=== PATIENT | female | born 1930 | race Caucasian/White ===

== ENCOUNTER → 2017-02-28 | Outpatient (CLI) | payer OTHER ==
[~2017-02-28] MED LIST: ALBU2.5V11 NEB; ALPR0.25 PO; ASPI-496 PO; ATEN50TA41 PO; ATOR20TA9 PO; CHLO25TA PO; CHOL200024 PO; DOXY100T PO; FAMO20TA7 PO; FLUT9.9S NAS; INDO50CA PO; METF500T4 PO; MULT-717 PO; PRIM50TA PO; TICA90TA PO; [UNRECOGNIZED DRUG - OTHER] PO
== END | disposition home or self-care (01) ==
LOC: CFH 14:19
PROVIDERS: ATTEND Family Medicine
DX: Z13.820 Encounter for screening for osteoporosis (principal); M81.0 Age-related osteoporosis without current pathological fracture; M41.86 Other forms of scoliosis, lumbar region; M43.16 Spondylolisthesis, lumbar region
CPT/HCPCS: 72100; 77080

== ENCOUNTER 2017-11-06 05:30 | Day surgery (SDC) | payer OTHER ==
[~2017-11-06] VITALS: Ht 152.4 cm; Wt 58.0 kg
[2017-11-06] MEDS ORDERED: LACTATED RINGERS 1,000 ML IV SCH (06:07)
[2017-11-06 06:39] VITALS: BP 151/72
[2017-11-06] MEDS ORDERED: CLOP75TA52 PO (06:43)
[2017-11-06] MEDS ORDERED: SERT50TA5 PO (06:44)
[2017-11-06] MEDS ORDERED: ALBU18HF INH (06:44)
[2017-11-06] MEDS ORDERED: ACET-1600 PO (06:44)
[2017-11-06 07:20] LABS: ALANINE AMINOTRANSFERASE 33 U/L (12-78); ALBUMIN 3.9 g/dL (3.4-5.0); ANION GAP 11 mmol/L (5-15); CALCIUM 8.7 mg/dL (8.5-10.1); CHLORIDE 100 mmol/L (98-107); CREATININE 1.25 mg/dL (0.55-1.02)
[2017-11-06 07:22] LABS: ALKALINE PHOSPHATASE 59 U/L (45-117); BILIRUBIN,TOTAL 0.4 mg/dL (0.2-1.0); TOTAL PROTEIN 7.8 g/dL (6.4-8.2)
[2017-11-06 07:26] LABS: BASOPHILS # (AUTO) 0.07 x10^3/uL (0-0.1); BASOPHILS % (AUTO) 1 % (0-1); EOSINOPHILS % (AUTO) 1 % (1-7); LYMPHOCYTES # (AUTO) 1.38 x10^3/uL (1-3.4); LYMPHOCYTES % (AUTO) 17 % (22-44); MD NO; MEAN CORPUSCULAR HEMOGLOBIN 31.1 pg (27.0-34.8); MEAN CORPUSCULAR HGB CONC 32.8 g/dL (32.4-35.8); MEAN PLATELET VOLUME 7.9 fL (7.4-10.4); MONOCYTES # (AUTO) 0.62 x10^3/uL (0.2-0.8); MONOCYTES % (AUTO) 8 % (2-9); NEUTROPHILS # (AUTO) 6.05 x10^3/uL (1.8-6.8); NEUTROPHILS % (AUTO) 74 % (42-75); PLATELET COUNT 242 x10^3/uL (130-400); RED BLOOD COUNT 4.55 x10^6/uL (3.82-5.3); RED CELL DISTRIBUTION WIDTH 14.6 % (9.6-15.2)
[2017-11-06] MEDS ORDERED: LABETALOL 5MG/ML, 20ML IV PRN (08:30)
[2017-11-06] MEDS ORDERED: FENTANYL PF 100 MCG/2ML IV PRN (08:30)
[2017-11-06] MEDS ORDERED: MIDAZOLAM 1 MG/ML, 2ML IV PRN (08:30)
[2017-11-06] MEDS ORDERED: ONDANSETRON 2MG/ML, 2ML IVPush PRN (08:30)
[2017-11-06] MEDS ORDERED: EPHEDRINE 50 MG/ML, 1ML IVPush PRN (08:30)
[2017-11-06] MEDS ORDERED: ACETAMINOPHEN 325 MG TABLET PO PRN (08:30)
[2017-11-06] MEDS ORDERED: hydrALAzine 20 MG/ML, 1ML ONE (08:37)
[2017-11-06] MEDS ORDERED: hydrALAzine 20 MG/ML, 1ML IV PRN (09:00)
[2017-11-06] MEDS ORDERED: PROPOFOL 10 MG/ML, 20ML ONE (15:48)
[2017-11-06] MEDS ORDERED: PROPOFOL 10 MG/ML, 50ML ONE (15:48)
== END 2017-11-06 10:20 ==
LOC: OUT 05:30
PROVIDERS: ATTEND Internal Medicine Gastroenterology
DX: D12.4 Benign neoplasm of descending colon (principal); K63.5 Polyp of colon; K62.1 Rectal polyp; K57.30 Diverticulosis of large intestine without perforation or abscess without bleeding; K64.8 Other hemorrhoids; J44.9 Chronic obstructive pulmonary disease, unspecified; I10 Essential (primary) hypertension; I25.10 Atherosclerotic heart disease of native coronary artery without angina pectoris
CPT/HCPCS: 36415; 45380; 45385; 80053; 85025; 88305; 93005; J0360; J2704; J7120

== ENCOUNTER → 2017-12-03 | Outpatient (CLI) | payer OTHER ==
[~2017-12-03] MED LIST changes: +ACET-1600 PO; +ALBU18HF INH; +CLOP75TA52 PO; +SERT50TA5 PO
== END ==
LOC: CVU 13:58
PROVIDERS: ATTEND Internal Medicine Cardiovascular Disease
DX: I65.23 Occlusion and stenosis of bilateral carotid arteries (principal); I10 Essential (primary) hypertension; E11.9 Type 2 diabetes mellitus without complications; Z87.891 Personal history of nicotine dependence
CPT/HCPCS: 93880

== ENCOUNTER 2018-01-02 15:52 | Inpatient (IN) | payer OTHER ==
[~2018-01-02] VITALS: Ht 152.4 cm; Wt 58.7 kg
[2018-01-02] MEDS ORDERED: ALBUTEROL/IPRATROPIUM 2.5MG/0.5MG, 3 ML NPPB ONE (16:30)
[2018-01-02] MEDS ORDERED: SODIUM CHLORIDE FLUSH 10ML SYR IVF ONE (16:30)
[2018-01-02 16:50] LABS: BASOPHILS # (AUTO) 0.05 x10^3/uL (0-0.1); BASOPHILS % (AUTO) 1 % (0-1); EOSINOPHILS # (AUTO) 0.53 x10^3/uL (0-0.4); EOSINOPHILS % (AUTO) 6 % (1-7); LYMPHOCYTES # (AUTO) 1.11 x10^3/uL (1-3.4); LYMPHOCYTES % (AUTO) 12 % (22-44); MD NO; MEAN CORPUSCULAR HEMOGLOBIN 31.3 pg (27.0-34.8); MEAN CORPUSCULAR HGB CONC 33.2 g/dL (32.4-35.8); MEAN CORPUSCULAR VOLUME 94.3 fL (80-100); MEAN PLATELET VOLUME 8.2 fL (7.4-10.4); MONOCYTES # (AUTO) 0.71 x10^3/uL (0.2-0.8); MONOCYTES % (AUTO) 8 % (2-9); NEUTROPHILS # (AUTO) 6.98 x10^3/uL (1.8-6.8); NEUTROPHILS % (AUTO) 75 % (42-75); PLATELET COUNT 421 x10^3/uL (130-400); RED CELL DISTRIBUTION WIDTH 14.3 % (9.6-15.2)
[2018-01-02] MEDS ORDERED: ALBUTEROL/IPRATROPIUM 2.5MG/0.5MG, 3 ML ONE (16:55)
[2018-01-02 16:58] LABS: ALANINE AMINOTRANSFERASE 57 U/L (12-78); ALBUMIN 2.9 g/dL (3.4-5.0); ANION GAP 7 mmol/L (5-15); CALCIUM 9.2 mg/dL (8.5-10.1); CHLORIDE 96 mmol/L (98-107); CREATININE 1.24 mg/dL (0.55-1.02)
[2018-01-02 17:02] LABS: ALKALINE PHOSPHATASE 56 U/L (45-117); BILIRUBIN,TOTAL 0.2 mg/dL (0.2-1.0); TOTAL PROTEIN 7.5 g/dL (6.4-8.2); TROPONIN I < 0.015 ng/mL (0.000-0.045)
[2018-01-02] MEDS ORDERED: CHLO25TA PO (17:06)
[2018-01-02] MEDS ORDERED: PRIM250T PO (17:06)
[2018-01-02] MEDS ORDERED: SERT100T5 PO (17:06)
[2018-01-02 18:35] LABS: RAPID INFLUENZA A Negative (Negative); RAPID INFLUENZA B Negative (Negative)
[2018-01-02] MEDS ORDERED: OMNIPAQUE 350 MG/ML, 100ML BOTTLE ONE (19:42)
[2018-01-02] MEDS ORDERED: FUROSEMIDE 20 MG/2 ML IV ONE (20:30)
[2018-01-02] MEDS ORDERED: methylPREDNISolone 4mg DOSE PACK PO SCH (20:30)
[2018-01-02] MEDS ORDERED: POLYETHYLENE GLYCOL 17 GM PACKET PO PRN (20:30)
[2018-01-02] MEDS ORDERED: ACETAMINOPHEN 325 MG TABLET PO PRN (20:30)
[2018-01-02] MEDS ORDERED: ONDANSETRON 2MG/ML, 2ML IVPush PRN (20:30)
[2018-01-02] MEDS ORDERED: BISACODYL 10 MG SUPP PR PRN (20:30)
[2018-01-02] MEDS ORDERED: POTASSIUM CHLORIDE 20 MEQ TAB.ER.PRT PO ONE (20:30)
[2018-01-02] MEDS: HEPARIN 5,000 UNITS/ML, 1ML SQ SCH (20:30)
[2018-01-02 20:56] VITALS: BP 166/66
[2018-01-02] MEDS ORDERED: methylPREDNISolone 4mg DOSE PACK ONE (21:00)
[2018-01-02] MEDS: TICAGRELOR 90 MG TABLET PO SCH (21:00)
[2018-01-02] MEDS ORDERED: ALBUTEROL SULFATE 2.5 MG/3 ML NPPB PRN (22:00)
[2018-01-02] MEDS: SODIUM CHLORIDE FLUSH 10ML SYR IVF SCH (22:22)
[2018-01-02] MEDS: DOXYCYCLINE 100 MG in DEXTROSE 5% 250 ML IV SCH (22:22)
[2018-01-02] MEDS: ATORVASTATIN 20 MG TABLET PO SCH (22:23)
[2018-01-03 01:06] VITALS: BP 139/57
[2018-01-03 03:52] LABS: ALANINE AMINOTRANSFERASE 54 U/L (12-78); ALBUMIN 2.4 g/dL (3.4-5.0); ANION GAP 5 mmol/L (5-15); BASOPHILS # (AUTO) 0.03 x10^3/uL (0-0.1); BASOPHILS % (AUTO) 0 % (0-1); CALCIUM 8.9 mg/dL (8.5-10.1); CHLORIDE 97 mmol/L (98-107); CREATININE 1.18 mg/dL (0.55-1.02); EOSINOPHILS # (AUTO) 0.03 x10^3/uL (0-0.4); EOSINOPHILS % (AUTO) 1 % (1-7); LYMPHOCYTES # (AUTO) 0.95 x10^3/uL (1-3.4); LYMPHOCYTES % (AUTO) 13 % (22-44); MD NO; MEAN CORPUSCULAR HGB CONC 32.7 g/dL (32.4-35.8); MEAN CORPUSCULAR VOLUME 94.7 fL (80-100); MEAN PLATELET VOLUME 8.4 fL (7.4-10.4); MONOCYTES # (AUTO) 0.69 x10^3/uL (0.2-0.8); MONOCYTES % (AUTO) 10 % (2-9); NEUTROPHILS # (AUTO) 5.51 x10^3/uL (1.8-6.8); NEUTROPHILS % (AUTO) 76 % (42-75); PLATELET COUNT 378 x10^3/uL (130-400); RED BLOOD COUNT 3.59 x10^6/uL (3.82-5.3); RED CELL DISTRIBUTION WIDTH 14.2 % (9.6-15.2)
[2018-01-03 03:54] LABS: ALKALINE PHOSPHATASE 56 U/L (45-117); BILIRUBIN,TOTAL 0.1 mg/dL (0.2-1.0); TOTAL PROTEIN 6.4 g/dL (6.4-8.2)
[2018-01-03] MEDS: HEPARIN 5,000 UNITS/ML, 1ML SQ SCH ×3 (04:30→20:29)
[2018-01-03 08:55] VITALS: BP 126/64
[2018-01-03] MEDS: MULTIVITAMIN 1 TABLET PO SCH (08:55)
[2018-01-03] MEDS: CHOLECALCIFEROL 1,000 UNIT TABLET PO SCH (08:56)
[2018-01-03] MEDS: SERTRALINE 100MG TABLET PO SCH (08:56)
[2018-01-03] MEDS: ASPIRIN 81 MG TABLET EC PO SCH (08:56)
[2018-01-03] MEDS: PRIMIDONE 250 MG TABLET PO SCH (08:56)
[2018-01-03] MEDS: CHLORTHALIDONE 25 MG TABLET PO SCH (08:56)
[2018-01-03] MEDS: CLOPIDOGREL 75 MG TABLET PO SCH (08:59)
[2018-01-03] MEDS: FLUTICASONE/VILANTEROL 100-25MCG/INH INH SCH (09:00)
[2018-01-03] MEDS: FLUTICASONE NASAL SPRAY 16GM NAS SCH (09:00)
[2018-01-03] MEDS: SENNA/DOCUSATE TABLET PO SCH (09:00)
[2018-01-03] MEDS: TICAGRELOR 90 MG TABLET PO SCH (09:00)
[2018-01-03] MEDS: SODIUM CHLORIDE FLUSH 10ML SYR IVF SCH ×2 (09:00→20:37)
[2018-01-03] MEDS: DOXYCYCLINE 100 MG in DEXTROSE 5% 250 ML IV SCH ×2 (10:47→22:42)
[2018-01-03 14:36] VITALS: BP 58/64
[2018-01-03 19:40] VITALS: BP 110/56
[2018-01-03] MEDS: ATORVASTATIN 20 MG TABLET PO SCH (20:36)
[2018-01-04] MEDS: HEPARIN 5,000 UNITS/ML, 1ML SQ SCH ×3 (01:59→20:24)
[2018-01-04 02:27] VITALS: BP 114/68
[2018-01-04 06:53] VITALS: BP 112/66
[2018-01-04] MEDS: CHLORTHALIDONE 25 MG TABLET PO SCH ×2 (09:04→09:31)
[2018-01-04] MEDS: FLUTICASONE NASAL SPRAY 16GM NAS SCH (09:31)
[2018-01-04] MEDS: MULTIVITAMIN 1 TABLET PO SCH (09:31)
[2018-01-04] MEDS: CLOPIDOGREL 75 MG TABLET PO SCH (09:31)
[2018-01-04] MEDS: SODIUM CHLORIDE FLUSH 10ML SYR IVF SCH ×2 (09:33→20:23)
[2018-01-04] MEDS: ASPIRIN 81 MG TABLET EC PO SCH (09:33)
[2018-01-04] MEDS: SERTRALINE 100MG TABLET PO SCH (09:33)
[2018-01-04] MEDS: CHOLECALCIFEROL 1,000 UNIT TABLET PO SCH (09:33)
[2018-01-04] MEDS: FLUTICASONE/VILANTEROL 100-25MCG/INH INH SCH (09:33)
[2018-01-04] MEDS: SENNA/DOCUSATE TABLET PO SCH (09:34)
[2018-01-04] MEDS: PRIMIDONE 250 MG TABLET PO SCH (09:34)
[2018-01-04] MEDS: DOXYCYCLINE 100 MG in DEXTROSE 5% 250 ML IV SCH ×2 (11:47→23:45)
[2018-01-04 12:55] VITALS: BP 110/61
[2018-01-04 19:33] VITALS: BP 116/64
[2018-01-04] MEDS: ATORVASTATIN 20 MG TABLET PO SCH (20:22)
[2018-01-05 02:30] VITALS: BP 142/57
[2018-01-05] MEDS: HEPARIN 5,000 UNITS/ML, 1ML SQ SCH ×3 (04:30→23:40)
[2018-01-05 07:38] VITALS: BP 117/61
[2018-01-05] MEDS: SODIUM CHLORIDE FLUSH 10ML SYR IVF SCH ×2 (09:56→23:40)
[2018-01-05] MEDS: FLUTICASONE/VILANTEROL 100-25MCG/INH INH SCH (09:56)
[2018-01-05] MEDS: FLUTICASONE NASAL SPRAY 16GM NAS SCH (09:56)
[2018-01-05] MEDS: SERTRALINE 100MG TABLET PO SCH (09:58)
[2018-01-05] MEDS: PRIMIDONE 250 MG TABLET PO SCH (09:58)
[2018-01-05] MEDS: CHOLECALCIFEROL 1,000 UNIT TABLET PO SCH (09:58)
[2018-01-05] MEDS: CLOPIDOGREL 75 MG TABLET PO SCH (09:59)
[2018-01-05] MEDS: SENNA/DOCUSATE TABLET PO SCH (09:59)
[2018-01-05] MEDS: DOXYCYCLINE 100MG TABLET PO SCH ×2 (09:59→23:39)
[2018-01-05] MEDS: MULTIVITAMIN 1 TABLET PO SCH (09:59)
[2018-01-05] MEDS: ASPIRIN 81 MG TABLET EC PO SCH (09:59)
[2018-01-05] MEDS: CHLORTHALIDONE 25 MG TABLET PO SCH (12:33)
[2018-01-05 14:55] VITALS: BP_SYST 120; BP_SYST 136; BP_DIAS 63; BP_DIAS 75
[2018-01-05 18:42] VITALS: BP 156/69
[2018-01-05] MEDS: ATORVASTATIN 20 MG TABLET PO SCH (23:39)
[2018-01-06 02:31] VITALS: BP 123/68
[2018-01-06 04:21] LABS: BASOPHILS # (AUTO) 0.01 x10^3/uL (0-0.1); BASOPHILS % (AUTO) 0 % (0-1); EOSINOPHILS # (AUTO) 0.04 x10^3/uL (0-0.4); EOSINOPHILS % (AUTO) 0 % (1-7); LYMPHOCYTES # (AUTO) 1.04 x10^3/uL (1-3.4); LYMPHOCYTES % (AUTO) 12 % (22-44); MD NO; MEAN CORPUSCULAR HEMOGLOBIN 30.7 pg (27.0-34.8); MEAN CORPUSCULAR HGB CONC 32.5 g/dL (32.4-35.8); MEAN CORPUSCULAR VOLUME 94.5 fL (80-100); MEAN PLATELET VOLUME 7.8 fL (7.4-10.4); MONOCYTES # (AUTO) 0.32 x10^3/uL (0.2-0.8); MONOCYTES % (AUTO) 4 % (2-9); NEUTROPHILS % (AUTO) 84 % (42-75); PLATELET COUNT 443 x10^3/uL (130-400)
[2018-01-06 04:25] LABS: ALBUMIN 2.4 g/dL (3.4-5.0); ANION GAP 6 mmol/L (5-15); CALCIUM 9.1 mg/dL (8.5-10.1); CHLORIDE 101 mmol/L (98-107); CREATININE 0.95 mg/dL (0.55-1.02)
[2018-01-06] MEDS: HEPARIN 5,000 UNITS/ML, 1ML SQ SCH ×2 (04:30→12:48)
[2018-01-06 04:36] LABS: HEMOGLOBIN A1C 6.1 % (4.2-6.3)
[2018-01-06 06:40] VITALS: BP 156/81
[2018-01-06] MEDS: FLUTICASONE/VILANTEROL 100-25MCG/INH INH SCH (08:18)
[2018-01-06] MEDS: FLUTICASONE NASAL SPRAY 16GM NAS SCH (08:18)
[2018-01-06] MEDS: ASPIRIN 81 MG TABLET EC PO SCH (08:19)
[2018-01-06] MEDS: MULTIVITAMIN 1 TABLET PO SCH (08:19)
[2018-01-06] MEDS: PRIMIDONE 250 MG TABLET PO SCH (08:20)
[2018-01-06] MEDS: SENNA/DOCUSATE TABLET PO SCH (08:20)
[2018-01-06] MEDS: CLOPIDOGREL 75 MG TABLET PO SCH (08:20)
[2018-01-06] MEDS: SERTRALINE 100MG TABLET PO SCH (08:20)
[2018-01-06] MEDS: DOXYCYCLINE 100MG TABLET PO SCH (08:20)
[2018-01-06] MEDS: CHOLECALCIFEROL 1,000 UNIT TABLET PO SCH (08:21)
[2018-01-06] MEDS: CHLORTHALIDONE 25 MG TABLET PO SCH (08:24)
[2018-01-06] MEDS: SODIUM CHLORIDE FLUSH 10ML SYR IVF SCH (09:18)
[2018-01-06] MEDS ORDERED: PRED10TA PO (11:03)
[2018-01-06] MEDS ORDERED: DOXY100T PO (11:10)
[2018-01-06] MEDS ORDERED: PNEUMOCOCCAL 23 VACCINE IM-VACC ONE (12:00)
== END 2018-01-06 14:00 | disposition home health service (06) | DRG 189 ==
LOC: ED 17:00 → EDIP 20:22 → 3NW 20:31
PROVIDERS: ADMIT Hospitalist; ATTEND Hospitalist
DX: J96.01 Acute respiratory failure with hypoxia (principal); E43 Unspecified severe protein-calorie malnutrition; E11.51 Type 2 diabetes mellitus with diabetic peripheral angiopathy without gangrene; I50.32 Chronic diastolic (congestive) heart failure; I11.0 Hypertensive heart disease with heart failure; E87.1 Hypo-osmolality and hyponatremia; J44.1 Chronic obstructive pulmonary disease with (acute) exacerbation; M48.54XA Collapsed vertebra, not elsewhere classified, thoracic region, initial encounter for fracture; I25.10 Atherosclerotic heart disease of native coronary artery without angina pectoris; E78.5 Hyperlipidemia, unspecified; E87.6 Hypokalemia; Z82.3 Family history of stroke; Z82.49 Family history of ischemic heart disease and other diseases of the circulatory system; Z85.51 Personal history of malignant neoplasm of bladder; Z87.891 Personal history of nicotine dependence; Z95.5 Presence of coronary angioplasty implant and graft; Z23 Encounter for immunization
CPT/HCPCS: 36415; 71046; 71275; 80048; 80053; 82040; 83036; 83735; 83880; 84100; 84484; 85025; 85379; 87400; 90732; 93005; 94640; 99285; J7060; J7509; J7620; Q9967; J1940; J7512

== ENCOUNTER → 2018-06-03 | Outpatient (CLI) | payer OTHER ==
[~2018-06-03] MED LIST changes: -INDO50CA PO; +INDO50CA5 PO; -METF500T4 PO; +METF500T5 PO; +PRED10TA PO; +PRIM250T PO; +SERT100T5 PO
== END | disposition home or self-care (01) ==
LOC: WOUND 13:39
PROVIDERS: ATTEND Internal Medicine
DX: S81.811A Laceration without foreign body, right lower leg, initial encounter (principal); E11.9 Type 2 diabetes mellitus without complications; I11.0 Hypertensive heart disease with heart failure; I50.32 Chronic diastolic (congestive) heart failure; J96.11 Chronic respiratory failure with hypoxia; I25.10 Atherosclerotic heart disease of native coronary artery without angina pectoris; I70.201 Unspecified atherosclerosis of native arteries of extremities, right leg; I65.22 Occlusion and stenosis of left carotid artery; M81.0 Age-related osteoporosis without current pathological fracture; E78.2 Mixed hyperlipidemia; J43.9 Emphysema, unspecified; F32.9 Major depressive disorder, single episode, unspecified; Z85.51 Personal history of malignant neoplasm of bladder; Z87.891 Personal history of nicotine dependence; Z95.9 Presence of cardiac and vascular implant and graft, unspecified; Z95.5 Presence of coronary angioplasty implant and graft; W22.8XXA Striking against or struck by other objects, initial encounter; Y93.89 Activity, other specified; Y92.89 Other specified places as the place of occurrence of the external cause; Y99.8 Other external cause status
CPT/HCPCS: 97597; 99215

== ENCOUNTER → 2018-06-12 | Outpatient (CLI) | payer OTHER | END | disposition home or self-care (01) | LOC: WOUND 13:56 | PROVIDERS: ATTEND Family Medicine | DX: S81.811D Laceration without foreign body, right lower leg, subsequent encounter (principal); E78.2 Mixed hyperlipidemia; I70.208 Unspecified atherosclerosis of native arteries of extremities, other extremity; I65.22 Occlusion and stenosis of left carotid artery; J96.11 Chronic respiratory failure with hypoxia; M81.0 Age-related osteoporosis without current pathological fracture; I25.10 Atherosclerotic heart disease of native coronary artery without angina pectoris; J43.9 Emphysema, unspecified; I11.0 Hypertensive heart disease with heart failure; I50.32 Chronic diastolic (congestive) heart failure; E11.9 Type 2 diabetes mellitus without complications; F32.9 Major depressive disorder, single episode, unspecified; Z85.51 Personal history of malignant neoplasm of bladder; Z87.891 Personal history of nicotine dependence; Z95.5 Presence of coronary angioplasty implant and graft; Z95.1 Presence of aortocoronary bypass graft; X58.XXXD Exposure to other specified factors, subsequent encounter | CPT/HCPCS: 97597 ==

== ENCOUNTER → 2018-06-19 | Outpatient (CLI) | payer OTHER | END | disposition home or self-care (01) | LOC: WOUND 13:36 | PROVIDERS: ATTEND Family Medicine | DX: S81.811D Laceration without foreign body, right lower leg, subsequent encounter (principal); J96.11 Chronic respiratory failure with hypoxia; I50.32 Chronic diastolic (congestive) heart failure; E11.9 Type 2 diabetes mellitus without complications; J43.9 Emphysema, unspecified; I70.208 Unspecified atherosclerosis of native arteries of extremities, other extremity; I65.22 Occlusion and stenosis of left carotid artery; I10 Essential (primary) hypertension; E78.2 Mixed hyperlipidemia; I25.10 Atherosclerotic heart disease of native coronary artery without angina pectoris; M81.0 Age-related osteoporosis without current pathological fracture; E78.5 Hyperlipidemia, unspecified; F32.9 Major depressive disorder, single episode, unspecified; Z95.1 Presence of aortocoronary bypass graft; Z95.9 Presence of cardiac and vascular implant and graft, unspecified; Z95.5 Presence of coronary angioplasty implant and graft; Z85.51 Personal history of malignant neoplasm of bladder; Z87.891 Personal history of nicotine dependence; X58.XXXD Exposure to other specified factors, subsequent encounter | CPT/HCPCS: 11042 ==

== ENCOUNTER → 2018-06-26 | Outpatient (CLI) | payer OTHER | END | disposition home or self-care (01) | LOC: WOUND 13:33 | PROVIDERS: ATTEND Family Medicine | DX: S51.811D Laceration without foreign body of right forearm, subsequent encounter (principal); I11.0 Hypertensive heart disease with heart failure; I50.32 Chronic diastolic (congestive) heart failure; J96.11 Chronic respiratory failure with hypoxia; J43.9 Emphysema, unspecified; E78.2 Mixed hyperlipidemia; I70.208 Unspecified atherosclerosis of native arteries of extremities, other extremity; I65.22 Occlusion and stenosis of left carotid artery; I25.10 Atherosclerotic heart disease of native coronary artery without angina pectoris; M81.0 Age-related osteoporosis without current pathological fracture; F10.19 Alcohol abuse with unspecified alcohol-induced disorder; F32.9 Major depressive disorder, single episode, unspecified; Z95.5 Presence of coronary angioplasty implant and graft; Z95.9 Presence of cardiac and vascular implant and graft, unspecified; Z85.51 Personal history of malignant neoplasm of bladder; Z87.891 Personal history of nicotine dependence; Y90.9 Presence of alcohol in blood, level not specified | CPT/HCPCS: 11042 ==

== ENCOUNTER → 2018-07-10 | Outpatient (CLI) | payer OTHER ==
[~2018-07-10] MED LIST changes: +METF500T17 PO; -METF500T5 PO
== END | disposition home or self-care (01) ==
LOC: WOUND 14:05
PROVIDERS: ATTEND Family Medicine
DX: S81.811D Laceration without foreign body, right lower leg, subsequent encounter (principal); I11.0 Hypertensive heart disease with heart failure; I50.32 Chronic diastolic (congestive) heart failure; J96.11 Chronic respiratory failure with hypoxia; I70.208 Unspecified atherosclerosis of native arteries of extremities, other extremity; I25.10 Atherosclerotic heart disease of native coronary artery without angina pectoris; M81.0 Age-related osteoporosis without current pathological fracture; E78.2 Mixed hyperlipidemia; J43.9 Emphysema, unspecified; F32.9 Major depressive disorder, single episode, unspecified; I65.22 Occlusion and stenosis of left carotid artery; E11.51 Type 2 diabetes mellitus with diabetic peripheral angiopathy without gangrene; Z85.51 Personal history of malignant neoplasm of bladder; Z87.891 Personal history of nicotine dependence; Z95.9 Presence of cardiac and vascular implant and graft, unspecified; Z95.5 Presence of coronary angioplasty implant and graft; X58.XXXD Exposure to other specified factors, subsequent encounter
CPT/HCPCS: 97597

== ENCOUNTER → 2018-07-17 | Outpatient (CLI) | payer OTHER | END | disposition home or self-care (01) | LOC: WOUND 13:30 | PROVIDERS: ATTEND Family Medicine | DX: S81.811D Laceration without foreign body, right lower leg, subsequent encounter (principal); I11.0 Hypertensive heart disease with heart failure; I50.32 Chronic diastolic (congestive) heart failure; E11.51 Type 2 diabetes mellitus with diabetic peripheral angiopathy without gangrene; R60.9 Edema, unspecified; E78.2 Mixed hyperlipidemia; I65.22 Occlusion and stenosis of left carotid artery; J96.11 Chronic respiratory failure with hypoxia; I70.201 Unspecified atherosclerosis of native arteries of extremities, right leg; M81.0 Age-related osteoporosis without current pathological fracture; F32.9 Major depressive disorder, single episode, unspecified; J43.9 Emphysema, unspecified; E78.5 Hyperlipidemia, unspecified; I25.10 Atherosclerotic heart disease of native coronary artery without angina pectoris; Z95.1 Presence of aortocoronary bypass graft; Z87.891 Personal history of nicotine dependence; Z85.51 Personal history of malignant neoplasm of bladder; X58.XXXD Exposure to other specified factors, subsequent encounter | CPT/HCPCS: 11043 ==

== ENCOUNTER → 2018-07-24 | Outpatient (CLI) | payer OTHER | END | disposition home or self-care (01) | LOC: WOUND 13:00 | PROVIDERS: ATTEND Family Medicine | DX: S81.811D Laceration without foreign body, right lower leg, subsequent encounter (principal); E11.51 Type 2 diabetes mellitus with diabetic peripheral angiopathy without gangrene; I11.0 Hypertensive heart disease with heart failure; I50.32 Chronic diastolic (congestive) heart failure; I70.208 Unspecified atherosclerosis of native arteries of extremities, other extremity; F32.9 Major depressive disorder, single episode, unspecified; J43.9 Emphysema, unspecified; R60.9 Edema, unspecified; I65.22 Occlusion and stenosis of left carotid artery; J96.11 Chronic respiratory failure with hypoxia; I25.10 Atherosclerotic heart disease of native coronary artery without angina pectoris; E78.2 Mixed hyperlipidemia; M81.0 Age-related osteoporosis without current pathological fracture; Z85.51 Personal history of malignant neoplasm of bladder; Z87.891 Personal history of nicotine dependence; Z85.3 Personal history of malignant neoplasm of breast; X58.XXXD Exposure to other specified factors, subsequent encounter | CPT/HCPCS: 11042 ==

== ENCOUNTER → 2018-08-28 | Outpatient (CLI) | payer OTHER | END | disposition home or self-care (01) | LOC: CVU 12:42 | PROVIDERS: ATTEND Internal Medicine | DX: S81.801A Unspecified open wound, right lower leg, initial encounter (principal); I70.211 Atherosclerosis of native arteries of extremities with intermittent claudication, right leg; I25.10 Atherosclerotic heart disease of native coronary artery without angina pectoris; I10 Essential (primary) hypertension; E78.5 Hyperlipidemia, unspecified; Z85.51 Personal history of malignant neoplasm of bladder; X58.XXXA Exposure to other specified factors, initial encounter; Y93.89 Activity, other specified; Y92.89 Other specified places as the place of occurrence of the external cause; Y99.8 Other external cause status | CPT/HCPCS: 93922; 93925; 93970 ==

== ENCOUNTER → 2018-09-04 | Outpatient (CLI) | payer OTHER | END | disposition home or self-care (01) | LOC: WOUND 13:50 | PROVIDERS: ATTEND Family Medicine | DX: S81.811D Laceration without foreign body, right lower leg, subsequent encounter (principal); E11.51 Type 2 diabetes mellitus with diabetic peripheral angiopathy without gangrene; I11.0 Hypertensive heart disease with heart failure; I50.9 Heart failure, unspecified; J43.9 Emphysema, unspecified; F32.9 Major depressive disorder, single episode, unspecified; E78.5 Hyperlipidemia, unspecified; J96.11 Chronic respiratory failure with hypoxia; J96.10 Chronic respiratory failure, unspecified whether with hypoxia or hypercapnia; R60.9 Edema, unspecified; E78.2 Mixed hyperlipidemia; I70.202 Unspecified atherosclerosis of native arteries of extremities, left leg; I65.22 Occlusion and stenosis of left carotid artery; M81.0 Age-related osteoporosis without current pathological fracture; I25.10 Atherosclerotic heart disease of native coronary artery without angina pectoris; Z95.5 Presence of coronary angioplasty implant and graft; Z87.891 Personal history of nicotine dependence; Z85.51 Personal history of malignant neoplasm of bladder; Z85.3 Personal history of malignant neoplasm of breast; W20.8XXD Other cause of strike by thrown, projected or falling object, subsequent encounter | CPT/HCPCS: 97597 ==

== ENCOUNTER → 2018-09-11 | Outpatient (CLI) | payer OTHER | END | disposition home or self-care (01) | LOC: WOUND 13:41 | PROVIDERS: ATTEND Family Medicine | DX: S81.811D Laceration without foreign body, right lower leg, subsequent encounter (principal); E11.51 Type 2 diabetes mellitus with diabetic peripheral angiopathy without gangrene; R60.9 Edema, unspecified; J43.9 Emphysema, unspecified; E78.5 Hyperlipidemia, unspecified; I65.22 Occlusion and stenosis of left carotid artery; J96.11 Chronic respiratory failure with hypoxia; I70.201 Unspecified atherosclerosis of native arteries of extremities, right leg; I11.0 Hypertensive heart disease with heart failure; I50.32 Chronic diastolic (congestive) heart failure; F32.9 Major depressive disorder, single episode, unspecified; M81.0 Age-related osteoporosis without current pathological fracture; I25.10 Atherosclerotic heart disease of native coronary artery without angina pectoris; W50.0XXD Accidental hit or strike by another person, subsequent encounter; Z85.3 Personal history of malignant neoplasm of breast; Z85.51 Personal history of malignant neoplasm of bladder; Z87.891 Personal history of nicotine dependence; Z95.5 Presence of coronary angioplasty implant and graft | CPT/HCPCS: 11042 ==

== ENCOUNTER → 2018-09-18 | Outpatient (CLI) | payer OTHER | END | disposition home or self-care (01) | LOC: WOUND 13:21 | PROVIDERS: ATTEND Family Medicine | DX: S81.811D Laceration without foreign body, right lower leg, subsequent encounter (principal); I11.0 Hypertensive heart disease with heart failure; I50.32 Chronic diastolic (congestive) heart failure; I70.201 Unspecified atherosclerosis of native arteries of extremities, right leg; I65.22 Occlusion and stenosis of left carotid artery; J96.11 Chronic respiratory failure with hypoxia; J43.9 Emphysema, unspecified; I89.0 Lymphedema, not elsewhere classified; E78.5 Hyperlipidemia, unspecified; F32.9 Major depressive disorder, single episode, unspecified; M81.0 Age-related osteoporosis without current pathological fracture; R60.9 Edema, unspecified; E78.2 Mixed hyperlipidemia; I25.10 Atherosclerotic heart disease of native coronary artery without angina pectoris; Z85.3 Personal history of malignant neoplasm of breast; Z87.891 Personal history of nicotine dependence; Z95.5 Presence of coronary angioplasty implant and graft; Z85.51 Personal history of malignant neoplasm of bladder; X58.XXXD Exposure to other specified factors, subsequent encounter | CPT/HCPCS: 11042 ==

== ENCOUNTER → 2018-10-02 | Outpatient (CLI) | payer OTHER ==
[~2018-10-02] MED LIST changes: +ATOR20TA37 PO; -ATOR20TA9 PO
== END | disposition home or self-care (01) ==
LOC: WOUND 13:36
PROVIDERS: ATTEND Family Medicine
DX: S81.811D Laceration without foreign body, right lower leg, subsequent encounter (principal); I11.0 Hypertensive heart disease with heart failure; I50.32 Chronic diastolic (congestive) heart failure; I70.201 Unspecified atherosclerosis of native arteries of extremities, right leg; I65.22 Occlusion and stenosis of left carotid artery; J96.11 Chronic respiratory failure with hypoxia; J43.9 Emphysema, unspecified; I89.0 Lymphedema, not elsewhere classified; F32.9 Major depressive disorder, single episode, unspecified; M81.0 Age-related osteoporosis without current pathological fracture; E78.2 Mixed hyperlipidemia; I25.10 Atherosclerotic heart disease of native coronary artery without angina pectoris; Z87.891 Personal history of nicotine dependence; Z85.3 Personal history of malignant neoplasm of breast; Z85.51 Personal history of malignant neoplasm of bladder; Z95.5 Presence of coronary angioplasty implant and graft; Z95.1 Presence of aortocoronary bypass graft; X58.XXXD Exposure to other specified factors, subsequent encounter
CPT/HCPCS: 11042

== ENCOUNTER → 2018-10-09 | Outpatient (CLI) | payer OTHER | END | disposition home or self-care (01) | LOC: WOUND 13:26 | PROVIDERS: ATTEND Family Medicine | DX: S81.811D Laceration without foreign body, right lower leg, subsequent encounter (principal); E11.51 Type 2 diabetes mellitus with diabetic peripheral angiopathy without gangrene; I11.0 Hypertensive heart disease with heart failure; I50.32 Chronic diastolic (congestive) heart failure; I70.201 Unspecified atherosclerosis of native arteries of extremities, right leg; F32.9 Major depressive disorder, single episode, unspecified; J43.9 Emphysema, unspecified; R60.9 Edema, unspecified; E78.2 Mixed hyperlipidemia; I65.22 Occlusion and stenosis of left carotid artery; J96.11 Chronic respiratory failure with hypoxia; M81.0 Age-related osteoporosis without current pathological fracture; I25.10 Atherosclerotic heart disease of native coronary artery without angina pectoris; Z85.51 Personal history of malignant neoplasm of bladder; Z87.891 Personal history of nicotine dependence; Z85.3 Personal history of malignant neoplasm of breast; Z95.5 Presence of coronary angioplasty implant and graft; W22.8XXD Striking against or struck by other objects, subsequent encounter | CPT/HCPCS: 11042 ==

== ENCOUNTER → 2018-10-16 | Outpatient (CLI) | payer OTHER | END | disposition home or self-care (01) | LOC: WOUND 13:28 | PROVIDERS: ATTEND Family Medicine | DX: S81.811D Laceration without foreign body, right lower leg, subsequent encounter (principal); I11.0 Hypertensive heart disease with heart failure; E11.51 Type 2 diabetes mellitus with diabetic peripheral angiopathy without gangrene; I50.32 Chronic diastolic (congestive) heart failure; F32.9 Major depressive disorder, single episode, unspecified; J43.9 Emphysema, unspecified; E78.2 Mixed hyperlipidemia; M81.0 Age-related osteoporosis without current pathological fracture; I25.10 Atherosclerotic heart disease of native coronary artery without angina pectoris; I70.208 Unspecified atherosclerosis of native arteries of extremities, other extremity; I65.22 Occlusion and stenosis of left carotid artery; J96.11 Chronic respiratory failure with hypoxia; Z85.51 Personal history of malignant neoplasm of bladder; Z87.891 Personal history of nicotine dependence; Z85.3 Personal history of malignant neoplasm of breast; Z95.5 Presence of coronary angioplasty implant and graft; Z95.1 Presence of aortocoronary bypass graft; W22.8XXD Striking against or struck by other objects, subsequent encounter | CPT/HCPCS: 11042 ==

== ENCOUNTER → 2018-10-23 | Outpatient (CLI) | payer OTHER | END | disposition home or self-care (01) | LOC: WOUND 13:34 | PROVIDERS: ATTEND Family Medicine | DX: S81.811D Laceration without foreign body, right lower leg, subsequent encounter (principal); I11.0 Hypertensive heart disease with heart failure; I50.32 Chronic diastolic (congestive) heart failure; E11.51 Type 2 diabetes mellitus with diabetic peripheral angiopathy without gangrene; F32.9 Major depressive disorder, single episode, unspecified; J43.9 Emphysema, unspecified; E78.2 Mixed hyperlipidemia; M81.0 Age-related osteoporosis without current pathological fracture; I25.10 Atherosclerotic heart disease of native coronary artery without angina pectoris; I70.208 Unspecified atherosclerosis of native arteries of extremities, other extremity; I65.22 Occlusion and stenosis of left carotid artery; J96.11 Chronic respiratory failure with hypoxia; Z87.891 Personal history of nicotine dependence; Z85.51 Personal history of malignant neoplasm of bladder; Z85.3 Personal history of malignant neoplasm of breast; Z95.5 Presence of coronary angioplasty implant and graft; Z95.1 Presence of aortocoronary bypass graft; W22.8XXD Striking against or struck by other objects, subsequent encounter | CPT/HCPCS: 11042 ==

== ENCOUNTER → 2018-11-06 | Outpatient (CLI) | payer OTHER | END | disposition home or self-care (01) | LOC: WOUND 13:40 | PROVIDERS: ATTEND Family Medicine | DX: S81.811D Laceration without foreign body, right lower leg, subsequent encounter (principal); I11.0 Hypertensive heart disease with heart failure; I50.32 Chronic diastolic (congestive) heart failure; E11.51 Type 2 diabetes mellitus with diabetic peripheral angiopathy without gangrene; F32.9 Major depressive disorder, single episode, unspecified; J43.9 Emphysema, unspecified; E78.2 Mixed hyperlipidemia; M81.0 Age-related osteoporosis without current pathological fracture; I25.10 Atherosclerotic heart disease of native coronary artery without angina pectoris; I70.208 Unspecified atherosclerosis of native arteries of extremities, other extremity; I65.22 Occlusion and stenosis of left carotid artery; J96.11 Chronic respiratory failure with hypoxia; I89.0 Lymphedema, not elsewhere classified; Z87.891 Personal history of nicotine dependence; Z85.51 Personal history of malignant neoplasm of bladder; Z85.3 Personal history of malignant neoplasm of breast; Z95.5 Presence of coronary angioplasty implant and graft; Z95.1 Presence of aortocoronary bypass graft; W22.8XXD Striking against or struck by other objects, subsequent encounter | CPT/HCPCS: 11042 ==

== ENCOUNTER → 2018-11-13 | Outpatient (CLI) | payer OTHER ==
[~2018-11-13] MED LIST changes: +SERT100T32 PO; -SERT100T5 PO; +SERT50TA28 PO; -SERT50TA5 PO
== END | disposition home or self-care (01) ==
LOC: WOUND 13:35
PROVIDERS: ATTEND Family Medicine
DX: S81.811D Laceration without foreign body, right lower leg, subsequent encounter (principal); I70.201 Unspecified atherosclerosis of native arteries of extremities, right leg; E11.51 Type 2 diabetes mellitus with diabetic peripheral angiopathy without gangrene; I11.0 Hypertensive heart disease with heart failure; I50.32 Chronic diastolic (congestive) heart failure; R60.9 Edema, unspecified; E78.2 Mixed hyperlipidemia; J43.9 Emphysema, unspecified; I89.0 Lymphedema, not elsewhere classified; I65.22 Occlusion and stenosis of left carotid artery; J96.11 Chronic respiratory failure with hypoxia; M81.0 Age-related osteoporosis without current pathological fracture; F32.9 Major depressive disorder, single episode, unspecified; I25.10 Atherosclerotic heart disease of native coronary artery without angina pectoris; J96.10 Chronic respiratory failure, unspecified whether with hypoxia or hypercapnia; X58.XXXD Exposure to other specified factors, subsequent encounter; Z85.51 Personal history of malignant neoplasm of bladder; Z87.891 Personal history of nicotine dependence; Z95.5 Presence of coronary angioplasty implant and graft; Z85.3 Personal history of malignant neoplasm of breast
CPT/HCPCS: 97597

== ENCOUNTER 2018-11-20 14:29 | Outpatient (CLI) | payer OTHER | END 2018-11-20 23:59 | disposition home or self-care (01) | LOC: WOUND 14:29 | PROVIDERS: ATTEND Family Medicine | DX: S81.811D Laceration without foreign body, right lower leg, subsequent encounter (principal); E11.51 Type 2 diabetes mellitus with diabetic peripheral angiopathy without gangrene; R60.9 Edema, unspecified; E78.5 Hyperlipidemia, unspecified; I11.0 Hypertensive heart disease with heart failure; I50.32 Chronic diastolic (congestive) heart failure; J43.9 Emphysema, unspecified; I89.0 Lymphedema, not elsewhere classified; I65.22 Occlusion and stenosis of left carotid artery; J96.11 Chronic respiratory failure with hypoxia; M81.0 Age-related osteoporosis without current pathological fracture; I70.208 Unspecified atherosclerosis of native arteries of extremities, other extremity; I25.10 Atherosclerotic heart disease of native coronary artery without angina pectoris; J96.10 Chronic respiratory failure, unspecified whether with hypoxia or hypercapnia; F32.9 Major depressive disorder, single episode, unspecified; Z85.51 Personal history of malignant neoplasm of bladder; Z87.891 Personal history of nicotine dependence; Z85.3 Personal history of malignant neoplasm of breast; Z95.5 Presence of coronary angioplasty implant and graft; W22.8XXD Striking against or struck by other objects, subsequent encounter | CPT/HCPCS: 97597 ==

== ENCOUNTER → 2018-11-27 | Outpatient (CLI) | payer OTHER | END | disposition home or self-care (01) | LOC: WOUND 13:45 | PROVIDERS: ATTEND Family Medicine | DX: S81.811D Laceration without foreign body, right lower leg, subsequent encounter (principal); E11.51 Type 2 diabetes mellitus with diabetic peripheral angiopathy without gangrene; R60.9 Edema, unspecified; I10 Essential (primary) hypertension; J44.9 Chronic obstructive pulmonary disease, unspecified; E78.2 Mixed hyperlipidemia; I70.208 Unspecified atherosclerosis of native arteries of extremities, other extremity; I65.22 Occlusion and stenosis of left carotid artery; J96.11 Chronic respiratory failure with hypoxia; M81.0 Age-related osteoporosis without current pathological fracture; E78.5 Hyperlipidemia, unspecified; J96.10 Chronic respiratory failure, unspecified whether with hypoxia or hypercapnia; I25.10 Atherosclerotic heart disease of native coronary artery without angina pectoris; F32.9 Major depressive disorder, single episode, unspecified; Z87.891 Personal history of nicotine dependence; Z85.51 Personal history of malignant neoplasm of bladder; Z95.5 Presence of coronary angioplasty implant and graft; W22.8XXD Striking against or struck by other objects, subsequent encounter | CPT/HCPCS: 97597 ==

== ENCOUNTER → 2018-12-04 | Outpatient (CLI) | payer MEDICARE, OTHER | END | disposition home or self-care (01) | LOC: WOUND 14:41 | PROVIDERS: ATTEND Family Medicine | DX: S81.811D Laceration without foreign body, right lower leg, subsequent encounter (principal); E11.51 Type 2 diabetes mellitus with diabetic peripheral angiopathy without gangrene; I11.0 Hypertensive heart disease with heart failure; I50.9 Heart failure, unspecified; J43.9 Emphysema, unspecified; I89.0 Lymphedema, not elsewhere classified; R60.9 Edema, unspecified; E78.2 Mixed hyperlipidemia; I70.201 Unspecified atherosclerosis of native arteries of extremities, right leg; I65.22 Occlusion and stenosis of left carotid artery; E78.5 Hyperlipidemia, unspecified; F32.9 Major depressive disorder, single episode, unspecified; J96.11 Chronic respiratory failure with hypoxia; J96.10 Chronic respiratory failure, unspecified whether with hypoxia or hypercapnia; M81.0 Age-related osteoporosis without current pathological fracture; I25.10 Atherosclerotic heart disease of native coronary artery without angina pectoris; Z85.51 Personal history of malignant neoplasm of bladder; Z87.891 Personal history of nicotine dependence; Z85.3 Personal history of malignant neoplasm of breast; Z95.5 Presence of coronary angioplasty implant and graft; W22.8XXD Striking against or struck by other objects, subsequent encounter | CPT/HCPCS: 11042 ==

== ENCOUNTER → 2018-12-11 | Outpatient (CLI) | payer MEDICARE, OTHER | END | disposition home or self-care (01) | LOC: WOUND 13:35 | PROVIDERS: ATTEND Family Medicine | DX: S81.811D Laceration without foreign body, right lower leg, subsequent encounter (principal); E11.51 Type 2 diabetes mellitus with diabetic peripheral angiopathy without gangrene; I11.0 Hypertensive heart disease with heart failure; I50.32 Chronic diastolic (congestive) heart failure; I70.201 Unspecified atherosclerosis of native arteries of extremities, right leg; R60.9 Edema, unspecified; E78.2 Mixed hyperlipidemia; I65.22 Occlusion and stenosis of left carotid artery; J96.11 Chronic respiratory failure with hypoxia; I89.0 Lymphedema, not elsewhere classified; J44.1 Chronic obstructive pulmonary disease with (acute) exacerbation; J96.10 Chronic respiratory failure, unspecified whether with hypoxia or hypercapnia; F32.9 Major depressive disorder, single episode, unspecified; M81.0 Age-related osteoporosis without current pathological fracture; I25.10 Atherosclerotic heart disease of native coronary artery without angina pectoris; Z85.51 Personal history of malignant neoplasm of bladder; Z95.5 Presence of coronary angioplasty implant and graft; Z87.891 Personal history of nicotine dependence; W22.8XXD Striking against or struck by other objects, subsequent encounter | CPT/HCPCS: 97597 ==

== ENCOUNTER 2018-12-25 13:30 | Outpatient (CLI) | payer MEDICARE | END 2018-12-25 23:59 | disposition home or self-care (01) | LOC: WOUND 13:30 | PROVIDERS: ATTEND Family Medicine | DX: S81.801D Unspecified open wound, right lower leg, subsequent encounter (principal); I70.208 Unspecified atherosclerosis of native arteries of extremities, other extremity; I11.0 Hypertensive heart disease with heart failure; I50.9 Heart failure, unspecified; R60.9 Edema, unspecified; J43.9 Emphysema, unspecified; E78.2 Mixed hyperlipidemia; E78.5 Hyperlipidemia, unspecified; I10 Essential (primary) hypertension; I65.22 Occlusion and stenosis of left carotid artery; J96.11 Chronic respiratory failure with hypoxia; I89.0 Lymphedema, not elsewhere classified; F32.9 Major depressive disorder, single episode, unspecified; M81.0 Age-related osteoporosis without current pathological fracture; I25.10 Atherosclerotic heart disease of native coronary artery without angina pectoris; Z85.3 Personal history of malignant neoplasm of breast; Z87.891 Personal history of nicotine dependence; Z85.51 Personal history of malignant neoplasm of bladder; X58.XXXD Exposure to other specified factors, subsequent encounter | CPT/HCPCS: G0463 ==